=== PATIENT | female | born 1950 | race Two or more races ===

== ENCOUNTER 2025-07-24 13:06 | Outpatient (CLI) | payer OTHER ==
[~2025-07-24 13:06] MED LIST: AVALIDE 150-12.1 TA1; BENTYL10 MG/ML; GLIPIZIDE2.5 MG/BO1; GLUCOPHAGE XR500 MG; NITROSTAT0.4 MG; PROTONIX40 MG; PROZAC20 MG; SEROQUEL50 MG; TRANSDERM N 0.4 MG/HR; VERELAN120 MG
== END 2025-07-24 13:12 | disposition home or self-care (01) ==
LOC: SONOGRAMA 13:06
PROVIDERS: ATTEND Pathology Anatomic Pathology & Clinical Pathology
DX: D34 Benign neoplasm of thyroid gland (principal); E07.89 Other specified disorders of thyroid; E04.2 Nontoxic multinodular goiter